=== PATIENT | male | born 1940 | race African-American/Black ===

== ENCOUNTER 2021-08-30 19:26 | Inpatient (IN) | payer MEDICARE, OTHER ==
[~2021-08-30] VITALS: Ht 185.4 cm; Wt 74.8 kg
--- NOTE | 2021-08-30 20:00 | NUR ---
BIBRA 89 FROM HOME FOR C/O BLE WEAKNESS W/ A FALL EPISODE EARLIER TODAY. REDNESS AND SWELLING TO MID-FOREHEAD HIT ON FLOOR PER PT. -KO NO NEURO DEFECITS. PT ALERT AND ORIENTED X4 BREATHING EVEN AND UNLABORED. CHANGED INTO A GOWN AND PLACED ON MONITOR AND ALL V/S STABLE.
--- NOTE | 2021-08-30 20:02 | NUR ---
20G IV LINE ESTABLISHED AT [facility]. PATENT AND INTACT. BLOOD DRAWN AND SENT TO LAB.
--- NOTE | 2021-08-30 20:39 | NUR ---
PT TAKEN TO CT VIA PATY
[2021-08-30 20:45] LABS: BASOPHILS % (AUTO) 0.3 % (0.0-2.0); EOSINOPHILS % (AUTO) 0.4 % (0.0-6.0); HEMATOCRIT 45 % (39-51); HEMOGLOBIN 15.1 g/dL (13.5-17.5); LYMPHOCYTES # (AUTO) 0.8 K/uL (0.8-4.8); LYMPHOCYTES % (AUTO) 9.4 % (20.0-44.0); MEAN CORPUSCULAR HGB CONC 34 g/dl (31.0-36.0); MEAN CORPUSCULAR VOLUME 89 fL (80-96); MONOCYTES # (AUTO) 0.4 K/uL (0.1-1.30); MONOCYTES % (AUTO) 4.9 % (2.0-12.0); NEUTROPHILS # (AUTO) 6.9 K/uL (1.8-8.9); PLATELET COUNT (AUTO) 167 K/uL (150-450); RED BLOOD CELL COUNT(AUTO) 5.05 MIL/uL (4.5-6.0); WHITE BLOOD COUNT (AUTO) 8.1 K/uL (4.3-11.0)
--- NOTE | 2021-08-30 20:53 | NUR ---
PT RETURNED TO ER BED [address] VIA PATY
--- NOTE | 2021-08-30 20:56 | NUR ---
COVID TEST SWABBED AND SENT TO LAB
[2021-08-30 21:08] LABS: CALCIUM, SERUM 9.4 mg/dL (8.5-10.1); CARBON DIOXIDE 32 mmol/L (21-32); CHLORIDE 100 mmol/L (98-107); CREATININE 1.6 mg/dL (0.6-1.3); GLUCOSE 177 mg/dL (74-106); POTASSIUM 3.8 mmol/L (3.5-5.1); SODIUM SERUM 140 mmol/L (136-145); UREA NITROGEN, BLOOD 21 mg/dL (7-18)
[2021-08-30 21:16] LABS: ALANINE AMINOTRANSFERASE 28 U/L (12-78); ALBUMIN 3.7 g/dL (3.4-5.0); ALKALINE PHOSPHATASE 95 U/L (46-116); ASPARTATE AMINOTRANSFERASE 26 U/L (15-37); BILIRUBIN,DIRECT 0.1 mg/dL (0.0-0.2); BILIRUBIN,TOTAL 0.9 mg/dL (0.2-1.0); TOTAL PROTEIN, SERUM 8.2 g/dL (6.4-8.2)
[2021-08-30] MEDS ORDERED: CT SWABBABLE VALVE TRANS SET 1 EA INFUS.SET MC ONE (22:59)
[2021-08-30] MEDS ORDERED: IOHEXOL-350 100 ML VIAL IV ONE (22:59)
[2021-08-30] MEDS ORDERED: IV NS 0.9% 500 ML BAG IV ONE (23:00)
[2021-08-30] MEDS ORDERED: IV NS 0.9% 250 ML IV ONE (23:00)
--- NOTE | 2021-08-30 23:14 | NUR ---
PT TAKEN TO CT VIA PATY
--- NOTE | 2021-08-30 23:29 | NUR ---
PT RETURNED TO ER BED [address] VIA PATY
[2021-08-31] MEDS ORDERED: ASPIRIN 325 MG TABLET ONE (00:16)
[2021-08-31] MEDS ORDERED: ASPIRIN 325 MG TABLET PO ONE (00:30)
--- NOTE | 2021-08-31 00:43 | NUR ---
TELE 779-3
--- NOTE | 2021-08-31 00:56 | NUR ---
LOST CHARGE CARD CLERK AT PT'S BEDSIDE
[2021-08-31] MEDS ORDERED: MAG HYDROX/AL HYDROX/SIMETH 30 ML UDC PO PRN (01:00)
[2021-08-31] MEDS ORDERED: ONDANSETRON HCL/PF 4 MG/2 ML VIAL IVP PRN (01:00)
[2021-08-31] MEDS ORDERED: ACETAMINOPHEN 325 MG TABLET PO PRN (01:00)
[2021-08-31] MEDS ORDERED: Z GUARD REMEDY 4 OZ OINT TP PRN (01:00)
[2021-08-31] MEDS ORDERED: DEXTROSE 50%-WATER 50 ML DISP.SYRIN IV PRN (01:00)
[2021-08-31] MEDS ORDERED: ZOLPIDEM TARTRATE 5 MG TABLET PO PRN (01:00)
[2021-08-31] MEDS ORDERED: MAGNESIUM HYDROXIDE 30 ML UDC PO PRN (01:00)
--- NOTE | 2021-08-31 01:12 | NUR ---
REPORT GIVEN LORDESS
--- NOTE | 2021-08-31 01:57 | NUR ---
TRANSFERRED TO 325 UNDER ACLS
[2021-08-31] MEDS: IV NS 0.9% 1,000 ML IV PRN ×2 (03:31→22:36)
[2021-08-31 04:00] VITALS: BP 151/76
--- NOTE | 2021-08-31 04:13 | NUR ---
PHARMACY STUDENTMILLWRIGHT NOTES: RECEIVED PATIENT FROM ER VIA RNEY AWAKE, ON STABLE CONDITION, NO COMPLAIN OF PAIN AND DISCOMFORT AT THIS TIME, PLACED IN BED COMFORTABLY, SKIN ASSESSMENT DONE, PICTURE TAKEN ON TELE MONITORING SR-75 WITH IV LINE AT LAC#20 WITH ONGOING NSS@75ML PER HOUR INFUSING WELL, INVENTORY DONE AND DOCUMENTED, PATIENT ON ROOM AIR SATURATING WELL, ORIENTED TO ROOM, REMIND PATIENT TO USE CALL LIGHTS WHEN NEEDED ASSISTANCE, PATIENT KEPT CLEAN AND DRY ALL NEEDS MET, WILL CONTINUE TO MONITOR
--- NOTE | 2021-08-31 07:25 | NUR ---
HAND PRINTED CIRCUIT BOARD ASSEMBLER CLOSING NOTES: PATIENT WAS AWAKE IN BED. BED IN LOW POSITON, CALL LIGHTS WITHIN REACH, NO COMPLAIN OF PAIN AND DISCOMFORT AT THIS TIME, ON ROOM AIR SATURATING WELL, PATIENT ON TELE MONITORING WITH NSR, NO SYMPTOMS WAS OBSERVED, PATIENT WAS FALL RISK, CALL LIGHTA AND BED ALARM WAS ON, PATIENT KEPT CLEAN AND DRY ALL NEEDS MET ENDORSE TO INCOMING SHIFT.
--- NOTE | 2021-08-31 07:36 | NUR ---
HYDRAULIC RIVETER OPENING NOTES: RECEIVED PATIENT RESTING IN BED AWAKE, NO COMPLAIN OF PAIN OR DISCOMFORT AT THIS TIME, PATIENT IS BREATHING EVENLY AND NONLABORED ON ROOM AIR. NO SIGNS OF DISTRESS NOTED. PATIENT ON TELE MONITORING SR-75. PATIENT NOTED WITH IV LINE AT LAC#20 WITH ONGOING NSS@75ML PER HOUR INFUSING WELL. SAFETY MEASURES IN PLACE BED LOW LOCKED AND CALL LIGHT WITHIN REACH. WILL CONTINUE TO MONITOR
--- NOTE | 2021-08-31 07:45 | NUR ---
RN NOTES: HOME MEDS ACCOUNTED AND SIGNED BY ME AND PATIENT, WENT DOWN BUT NOBODY WAS IN PHARMACY TO ENDORSE , ENDORSE MEDICATION TO RN, CN WAS MADE AWARE
[2021-08-31] MEDS: BLOOD SUGAR DIAGNOSTIC 1 EACH STRIP VI SCH ×4 (07:51→21:58)
[2021-08-31 08:00] VITALS: BP 138/98
[2021-08-31] MEDS: ASPIRIN 81 MG TAB.CHEW PO SCH (08:05)
[2021-08-31] MEDS ORDERED: LISI1TAB29 PO (09:47)
[2021-08-31] MEDS ORDERED: ALOG12.52 PO (09:47)
[2021-08-31] MEDS ORDERED: CHOL100043 PO (09:47)
[2021-08-31] MEDS ORDERED: BISA5TAB10 PO (09:47)
[2021-08-31] MEDS ORDERED: METF-881 PO (09:47)
[2021-08-31] MEDS ORDERED: OMEP20CA15 PO (09:47)
[2021-08-31] MEDS ORDERED: TAMS-12 PO (09:47)
[2021-08-31] MEDS ORDERED: ATOR40TA PO (09:47)
[2021-08-31] MEDS ORDERED: EMPA25TA PO (09:47)
[2021-08-31] MEDS ORDERED: BISACODYL (5 MG) 5 MG TABLET.DR PO PRN (11:30)
[2021-08-31] MEDS: TAMSULOSIN 0.4 MG CAP.SR.24H PO SCH ×2 (11:39→17:06)
[2021-08-31] MEDS: INSULIN REGULAR, HUMAN 100 UNIT/ML 3 ML VIAL SQ PRN ×2 (11:42→17:06)
[2021-08-31 11:44] LABS: BASOPHILS % (AUTO) 0.4 % (0.0-2.0); EOSINOPHILS % (AUTO) 0.7 % (0.0-6.0); HEMATOCRIT 39 % (39-51); HEMOGLOBIN 13.1 g/dL (13.5-17.5); LYMPHOCYTES # (AUTO) 1.1 K/uL (0.8-4.8); LYMPHOCYTES % (AUTO) 15.4 % (20.0-44.0); MEAN CORPUSCULAR HGB CONC 33 g/dl (31.0-36.0); MEAN CORPUSCULAR VOLUME 90 fL (80-96); MONOCYTES # (AUTO) 0.5 K/uL (0.1-1.30); MONOCYTES % (AUTO) 6.7 % (2.0-12.0); NEUTROPHILS # (AUTO) 5.3 K/uL (1.8-8.9); NEUTROPHILS % (AUTO) 76.8 % (43.0-81.0); PLATELET COUNT (AUTO) 154 K/uL (150-450); WHITE BLOOD COUNT (AUTO) 6.8 K/uL (4.3-11.0)
[2021-08-31 12:00] VITALS: BP 123/75
[2021-08-31 16:00] VITALS: BP 141/78
--- NOTE | 2021-08-31 18:33 | NUR ---
DIRECTOR CRAFT CENTER CLOSING NOTES: PATIENT RESTING IN BED AWAKE, NO COMPLAIN OF PAIN OR DISCOMFORT AT THIS TIME, PATIENT IS BREATHING EVENLY AND NONLABORED ON ROOM AIR. NO SIGNS OF DISTRESS NOTED. PATIENT ON TELE MONITORING PATIENT NOTED WITH IV LINE AT LAC#20 WITH ONGOING NSS@75ML PER HOUR INFUSING WELL. ALL MEDICATIONS GIVEN ORDERED. SAFETY MEASURES IN PLACE BED LOW LOCKED AND CALL LIGHT WITHIN REACH. WILL ENDORSE TO ONCOMING SHIFT
--- NOTE | 2021-08-31 19:20 | NUR ---
LABORATORY SPECIALIST OPENING NOTES: RECEIVED PATIENT IN BED, AWAKE, A/O X4. NO S/S OF DISTRESS NOTED. NO COMPLAIN OF PAIN. CALL LIGHT WITHIN REACH. BED IN LOWEST AND LOCKED POSITION. BED ALARM ON. URINAL AT THE BEDSIDE. BEDSIDE COMMODE AT THE BEDSIDE. INSTRUCTED PATIENT BEDREST AND TO CALL FOR ASSISTANCE PATIENT VERBALIZED UNDERSTANDING.
[2021-08-31 20:00] VITALS: BP 140/80
[2021-08-31 20:17] LABS: CALCIUM, SERUM 8.5 mg/dL (8.5-10.1); CARBON DIOXIDE 25 mmol/L (21-32); CHLORIDE 100 mmol/L (98-107); CREATININE 1.4 mg/dL (0.6-1.3); GLUCOSE 187 mg/dL (74-106); POTASSIUM 3.1 mmol/L (3.5-5.1); SODIUM SERUM 139 mmol/L (136-145); UREA NITROGEN, BLOOD 19 mg/dL (7-18)
[2021-08-31 20:20] LABS: PHOSPHORUS 3.1 mg/dL (2.5-4.9)
[2021-08-31] MEDS: HEPARIN SODIUM, PORCINE 5000 UNITS/1 ML VIAL SQ SCH ×2 (21:00→22:19)
[2021-08-31 21:40] LABS: ALKALINE PHOSPHATASE 86 U/L (46-116); BILIRUBIN,TOTAL 0.9 mg/dL (0.2-1.0)
[2021-08-31 21:41] LABS: ALANINE AMINOTRANSFERASE 28 U/L (12-78); ALBUMIN 3.3 g/dL (3.4-5.0); ASPARTATE AMINOTRANSFERASE 39 U/L (15-37)
[2021-08-31 21:53] LABS: CHOLESTEROL 132 mg/dL (<200); HDL CHOLESTEROL 44 mg/dL (40-60); LDL 76 mg/dL (0-99); TRIGLYCERIDES 54 mg/dL (30-150)
[2021-08-31] MEDS: *INSULIN REGULAR(HUMULIN R)HUM 100 UNIT/ML VIAL SQ PRN (21:58)
[2021-08-31] MEDS: ATORVASTATIN 40 MG TABLET PO SCH (22:19)
[2021-08-31 22:22] LABS: THYROID STIMULATING HORMONE 0.996 uIU/mL (0.358-3.74)
[2021-09-01] VITALS: BP 141/78
[2021-09-01 04:00] VITALS: BP 146/80
[2021-09-01 06:37] LABS: BASOPHILS % (AUTO) 0.4 % (0.0-2.0); EOSINOPHILS % (AUTO) 2.2 % (0.0-6.0); HEMATOCRIT 40 % (39-51); HEMOGLOBIN 13.1 g/dL (13.5-17.5); LYMPHOCYTES # (AUTO) 1.8 K/uL (0.8-4.8); LYMPHOCYTES % (AUTO) 32.6 % (20.0-44.0); MEAN CORPUSCULAR HGB CONC 33 g/dl (31.0-36.0); MEAN CORPUSCULAR VOLUME 90 fL (80-96); MONOCYTES # (AUTO) 0.5 K/uL (0.1-1.30); MONOCYTES % (AUTO) 10.2 % (2.0-12.0); NEUTROPHILS # (AUTO) 2.9 K/uL (1.8-8.9); NEUTROPHILS % (AUTO) 54.6 % (43.0-81.0); PLATELET COUNT (AUTO) 148 K/uL (150-450); WHITE BLOOD COUNT (AUTO) 5.4 K/uL (4.3-11.0)
[2021-09-01] MEDS: INSULIN REGULAR, HUMAN 100 UNIT/ML 3 ML VIAL SQ PRN ×2 (06:49→12:26)
[2021-09-01] MEDS: BLOOD SUGAR DIAGNOSTIC 1 EACH STRIP VI SCH ×4 (06:50→21:16)
[2021-09-01 08:00] VITALS: BP 133/77
[2021-09-01] MEDS: HEPARIN SODIUM, PORCINE 5000 UNITS/1 ML VIAL SQ SCH ×2 (10:44→21:00)
[2021-09-01] MEDS: ALOGLIPTIN 12.5 MG PO SCH (10:45)
[2021-09-01] MEDS: CHOLECALCIFEROL 1,000 UNIT TABLET (VIT D3) PO SCH (10:46)
[2021-09-01] MEDS: ASPIRIN 81 MG TAB.CHEW PO SCH (10:46)
[2021-09-01] MEDS: TAMSULOSIN 0.4 MG CAP.SR.24H PO SCH ×2 (10:46→16:56)
[2021-09-01] MEDS: PANTOPRAZOLE 40 MG TABLET.DR PO SCH (10:46)
[2021-09-01] MEDS: EMPAGLIFLOZIN 25 MG PO SCH (10:46)
[2021-09-01 12:10] LABS: ALANINE AMINOTRANSFERASE 32 U/L (12-78); ALKALINE PHOSPHATASE 76 U/L (46-116); ASPARTATE AMINOTRANSFERASE 32 U/L (15-37); BILIRUBIN,TOTAL 0.7 mg/dL (0.2-1.0); CALCIUM, SERUM 8.6 mg/dL (8.5-10.1); CARBON DIOXIDE 28 mmol/L (21-32); CHLORIDE 104 mmol/L (98-107); CREATININE 1.4 mg/dL (0.6-1.3); GLUCOSE 127 mg/dL (74-106); PHOSPHORUS 4.7 mg/dL (2.5-4.9); POTASSIUM 3.1 mmol/L (3.5-5.1); SODIUM SERUM 144 mmol/L (136-145); TOTAL PROTEIN, SERUM 6.5 g/dL (6.4-8.2); UREA NITROGEN, BLOOD 17 mg/dL (7-18)
[2021-09-01 12:15] LABS: MAGNESIUM 1.1 mg/dL (1.8-2.4)
[2021-09-01] MEDS ORDERED: MAGNESIUM OXIDE 400 MG TABLET PO ONE (13:00)
--- NOTE | 2021-09-01 13:34 | NUR ---
contacted-dr. rutledge regarding low mg level for 2 days.mg oxide ordered and given.
[2021-09-01] MEDS ORDERED: NITROGLYCERIN 0.4 MG/TAB BOTTLE ONE (14:03)
[2021-09-01] MEDS ORDERED: IOHEXOL-350 100 ML VIAL IV ONE (14:03)
[2021-09-01] MEDS ORDERED: CT SWABBABLE VALVE TRANS SET 1 EA INFUS.SET MC ONE (14:04)
[2021-09-01] MEDS ORDERED: IV NS 0.9% 250 ML IV ONE (14:04)
[2021-09-01] MEDS ORDERED: METOPROLOL TARTRATE INJ 5 MG/5 ML AMPUL ONE (14:04)
[2021-09-01] MEDS ORDERED: METOPROLOL TARTRATE INJ 5 MG/5 ML AMPUL IVP PRN (14:30)
[2021-09-01] MEDS ORDERED: NITROGLYCERIN 0.4 MG/TAB BOTTLE SL ONE (14:30)
[2021-09-01 16:00] VITALS: BP 129/75
[2021-09-01] MEDS ORDERED: POTASSIUM CHLORIDE 20 MEQ TAB.PRT.SR PO SCH (17:00)
--- NOTE | 2021-09-01 18:00 | NUR ---
received pt. in am alert and oriented x4.no complaints.med compliant.had ct angio of heart and now to have heart cath tomorrow.consent signed.mg replacement and potassium replacement given.
--- NOTE | 2021-09-01 19:50 | NUR ---
MS RN OPENING NOTES RECEIVED ENDORSEMENT FROM VAISHNAVI READ; PATIENT AWAKE, A/OX4, BELIZEAN SPEAKING; DENIES ANY PAIN, NO DISTRESS NOTED; TOLERATING ROOM AIR WELL; PATIENT IS AWARE OF NPO STATUS BY MIDNIGHT TONIGHT FOR CTA OF HEART TOMORROW MORNING; R AC #20 INTACT AND PATENT, TOLERATING IVF WELL; BED LOCKED IN LOW POSITION; SIDE RAILS UP X2, CALL LIGHT WITHIN REACH, WILL CONT PLAN OF CARE AND CONT TO MONITOR PATIENT
[2021-09-01 20:00] VITALS: BP 122/74
[2021-09-01] MEDS: ATORVASTATIN 40 MG TABLET PO SCH (21:16)
--- NOTE | 2021-09-01 21:24 | NUR ---
MS RN NOTES HEPARIN HELD D/T PROCEDURE IN AM; PATIENT ALSO DID NOT WANT HEPARIN BECAUSE OF PROCEDURE, PATIENT BLOOD SUGAR LEVEL 144 MG/DL, CHARGE NURSE VERBALIZED DO NOT GIVE INSULIN DUE TO PROCEDURE AND NPO STATUS; CHARGE NURSE IS AWARE; WILL CONT TO MONITOR
[2021-09-01] MEDS: IV NS 0.9% 1,000 ML IV PRN (21:54)
--- NOTE | 2021-09-01 21:54 | NUR ---
MS RN NOTES PATIENT 3RD IV BAG OF NS ADMINISTERED, AFTER 3RD BAG PER ORDER, SWITCH TO D5; CHARGE NURSE AWARE, WILL ENDORSE TO AM SHIFT
[2021-09-02 04:25] LABS: BILIRUBIN,URINE NEGATIVE (NEGATIVE); COLOR,URINE YELLOW (YELLOW); LEUKOCYTE ESTERASE ,URINE NEGATIVE (NEGATIVE); NITRITE, URINE NEGATIVE (NEGATIVE); PH,URINE 5.5 (5.0-8.0); PROTEIN,URINE NEGATIVE (NEGATIVE); UGLUCOSE >=1000 mg/dL (NEGATIVE); UROBILINOGEN,URINE 0.2 EU/dL (0.2)
[2021-09-02] MEDS ORDERED: IV D5/0.45 NACL 1,000 ML IV PRN (06:00)
[2021-09-02 06:21] LABS: BASOPHILS % (AUTO) 0.6 % (0.0-2.0); EOSINOPHILS % (AUTO) 2.1 % (0.0-6.0); HEMATOCRIT 38 % (39-51); HEMOGLOBIN 12.9 g/dL (13.5-17.5); LYMPHOCYTES # (AUTO) 1.7 K/uL (0.8-4.8); LYMPHOCYTES % (AUTO) 32.2 % (20.0-44.0); MEAN CORPUSCULAR HGB CONC 34 g/dl (31.0-36.0); MEAN CORPUSCULAR VOLUME 89 fL (80-96); MONOCYTES # (AUTO) 0.5 K/uL (0.1-1.30); MONOCYTES % (AUTO) 10.3 % (2.0-12.0); NEUTROPHILS # (AUTO) 2.8 K/uL (1.8-8.9); NEUTROPHILS % (AUTO) 54.8 % (43.0-81.0); PLATELET COUNT (AUTO) 133 K/uL (150-450); RED BLOOD CELL COUNT(AUTO) 4.29 MIL/uL (4.5-6.0); WHITE BLOOD COUNT (AUTO) 5.2 K/uL (4.3-11.0)
[2021-09-02] MEDS: PANTOPRAZOLE 40 MG TABLET.DR PO SCH (06:36)
[2021-09-02] MEDS: BLOOD SUGAR DIAGNOSTIC 1 EACH STRIP VI SCH ×4 (06:36→21:51)
--- NOTE | 2021-09-02 07:30 | NUR ---
MS RN CLOSING NOTES PATIENT AWAKE, A/OX4, TAJIK SPEAKING; DENIES ANY PAIN, NO DISTRESS NOTED; TOLERATING ROOM AIR WELL; PATIENT IS AWARE OF NPO STATUS FOR CARDIAC CATH; R AC #20 INTACT AND PATENT, TOLERATING IVF WELL; BED LOCKED IN LOW POSITION; SIDE RAILS UP X2, CALL LIGHT WITHIN REACH, WILL ENDORSE CONTINUITY OF CARE TO ONCOMING SHIFT
[2021-09-02 07:40] LABS: CALCIUM, SERUM 8.1 mg/dL (8.5-10.1); CREATININE 1.3 mg/dL (0.6-1.3); POTASSIUM 3.2 mmol/L (3.5-5.1)
--- NOTE | 2021-09-02 08:07 | NUR ---
RN Opening Note Patient received in bed AO x 4, able to responds all stimuli. Respiratory even and unlabored on room air. No distress observed. Patient going cardiac cath at 10:30 in this morning. Skin is warm to touch, keep clean/dry, intact IV site. Kept elevated HOB for ensure airway/aspiration precaution and remain lower position of the bed for safety. call light within reach, will continue to monitor.
[2021-09-02 08:12] VITALS: BP 146/85
[2021-09-02] MEDS: CHOLECALCIFEROL 1,000 UNIT TABLET (VIT D3) PO SCH (08:45)
[2021-09-02] MEDS: ASPIRIN 81 MG TAB.CHEW PO SCH (08:45)
[2021-09-02] MEDS: HEPARIN SODIUM, PORCINE 5000 UNITS/1 ML VIAL SQ SCH ×3 (08:45→21:14)
[2021-09-02] MEDS: ALOGLIPTIN 12.5 MG PO SCH (08:47)
[2021-09-02] MEDS: TAMSULOSIN 0.4 MG CAP.SR.24H PO SCH ×2 (08:48→17:43)
[2021-09-02] MEDS: EMPAGLIFLOZIN 25 MG PO SCH (08:48)
[2021-09-02] MEDS ORDERED: METFORMIN XR 500 MG TAB.SR.24H PO SCH (09:00)
[2021-09-02] MEDS ORDERED: IV NS 0.9% 1,000 ML ONE (09:47)
[2021-09-02] MEDS ORDERED: IODIXANOL 150 ML IV ONE (09:49)
[2021-09-02] MEDS ORDERED: NITROGLYCERIN IN 5 % DEXTROSE 250 ML IV ONE (09:49)
[2021-09-02] MEDS ORDERED: LIDOCAINE HCL/PF 1% 30 ML SDV ONE (09:49)
[2021-09-02] MEDS ORDERED: MIDAZOLAM HCL 2 MG/2ML VIAL ONE (10:17)
[2021-09-02] MEDS ORDERED: FENTANYL PF 100MCG/2ML AMPUL ONE (10:17)
[2021-09-02] MEDS ORDERED: HEPARIN SODIUM, PORCINE 5000 UNITS/1 ML VIAL ONE (11:15)
[2021-09-02] MEDS ORDERED: HEPARIN SODIUM, PORCINE 1,000 UNIT/ML VIAL ONE (11:15)
[2021-09-02] MEDS: POTASSIUM CL. PREMIX PERIPHER. 50 ML IV SCH ×2 (13:30→13:57)
[2021-09-02] MEDS ORDERED: IV NS 0.9% 100 ML IV ONE (13:30)
[2021-09-02] MEDS: IV NS 0.9% 1,000 ML IV PRN ×2 (13:43→14:03)
[2021-09-02] MEDS ORDERED: IV NS 0.9% 1,000 ML IV ONE (16:00)
[2021-09-02 16:06] VITALS: BP 167/76
[2021-09-02] MEDS: *INSULIN REGULAR(HUMULIN R)HUM 100 UNIT/ML VIAL SQ PRN ×2 (17:44→22:04)
--- NOTE | 2021-09-02 18:55 | NUR ---
RN Closing Note Patient is resting in bed, no distress observed. Respiratory even and unlabored on room air. Skin is warm to touch, keep clean/dry. Patient done cardiac cath today and no need intervention, received order discharge to home. However, family member mentioned that patient still weakness, unstable gait, and elevated BP. Dr. Alford said "patient ok to stay tonight." Kept elevated HOB for ensure airway and aspiration precaution, Also lower position of the bed for safety. Call light within reach, all needs met. will endorse shift commander.
--- NOTE | 2021-09-02 19:30 | NUR ---
RN NOTES RECEIVED ON BED A/O X4,SPEAK SURINAM[place],UNDERSTAND AZERI,S./P LEFT HIP TOTAL ARTHROPLASTY,DRESSING INTACT AND DRY,NO BLEEDING NOTES,ENCOURAGED TO USE INCENTIVE SPIROMETRY FOR LUNG EXERCISE WHILE AWAKE.IVF LR AT 100ML/HR RATE INFUSING WELL ON LFA SALINE LOCK VIA IV PUMP,SITE PATENT.PAIN TOLERABLE AT THE MOMENT,CALL LIGHT IN REACH,NEEDS ANTICIPATED. Addendum: 09/02/21 at 2033 by JOHNNIE HELLER RN ENTERED NOTES NOT FOR THIS PATIENT,SHOULD BE [phone]
--- NOTE | 2021-09-02 19:35 | NUR ---
MS RN NOTES RECEIVED ON BED A/O X4,WATCHING TV PROGRAM,BREATHING REGULAR,NOT ANY FORM OF DISTRESS,PRESENT IVF D51/2 NS AT 75ML/HR RATE INFUSING WELL ON RIGHT AC SALINE LOCK VIA IV PUMP,SITE PATENT.DENIES DISCOMFORTS.FALL RISK,BED ALARM,BED ON LOWEST POSITION AND LOCKED,CALL LIGHT IN REACH,NEEDS ANTICIPATED.
[2021-09-02 20:00] VITALS: BP 147/76
--- NOTE | 2021-09-02 21:00 | NUR ---
MS RN NOTES OFFERED TO GIVE HEPARIN 5000 UNITS,PATIENT REFUSED.EXPLAINED RISK AND BENEFITS, STILL REFUSED.
[2021-09-02] MEDS: ATORVASTATIN 40 MG TABLET PO SCH (21:14)
--- NOTE | 2021-09-02 21:30 | NUR ---
MS RN NOTES ACCU-CHECK BLOOD SUGAR CHECK 157,COVERED WITH HUMULIN R 2 UNITS PER SLIDING SCALE.
[2021-09-03] MEDS: BLOOD SUGAR DIAGNOSTIC 1 EACH STRIP VI SCH (05:23)
--- NOTE | 2021-09-03 05:30 | NUR ---
MS RN NOTES ACCU-CHECK BLOOD SUGAR CHECK 136,COVERED WITH HUMULIN R 2 UNITS PER SLIDING SCALE.
[2021-09-03] MEDS: INSULIN REGULAR, HUMAN 100 UNIT/ML 3 ML VIAL SQ PRN (05:41)
--- NOTE | 2021-09-03 06:33 | NUR ---
MS RN NOTES SLEPT WELL AT NIGHT.CLAIMED HE FEELS BETTER AND RESTED.FOR DISCHARGE TODAY TODAY TO HOME.NO DISTRESS.ALL NEEDS ATTENDED.
[2021-09-03 08:00] VITALS: BP 156/76
--- NOTE | 2021-09-03 08:00 | NUR ---
RN Opening Note Patient received in bed AO x 4, able to responds all stimuli. Respiratory even and unlabored on room air. No distress observed. Skin is warm to touch, keep clean/dry, intact IV site. Kept elevated HOB for ensure airway/aspiration precaution and remain lower position of the bed for safety. call light within reach, will continue to monitor.
[2021-09-03] MEDS: CHOLECALCIFEROL 1,000 UNIT TABLET (VIT D3) PO SCH (08:05)
[2021-09-03] MEDS: EMPAGLIFLOZIN 25 MG PO SCH (08:05)
[2021-09-03] MEDS: ALOGLIPTIN 12.5 MG PO SCH (08:05)
[2021-09-03] MEDS: ASPIRIN 81 MG TAB.CHEW PO SCH (08:06)
[2021-09-03] MEDS: PANTOPRAZOLE 40 MG TABLET.DR PO SCH (08:06)
[2021-09-03] MEDS: TAMSULOSIN 0.4 MG CAP.SR.24H PO SCH (08:06)
[2021-09-03] MEDS: HEPARIN SODIUM, PORCINE 5000 UNITS/1 ML VIAL SQ SCH (08:15)
[2021-09-03] MEDS ORDERED: LOSARTAN POTASSIUM 50 MG TABLET PO SCH (09:00)
[2021-09-03] MEDS ORDERED: CARVEDILOL 12.5 MG TABLET PO SCH (09:00)
[2021-09-03 09:08] VITALS: BP 156/76
--- NOTE | 2021-09-03 09:12 | NUR ---
HR 50, will hold Coreg.
[2021-09-03 11:07] LABS: *SPE A/G RATIO 0.9 (0.7-1.7); *SPE ALPHA-1-GLOBULIN 0.2 g/dL (0.0-0.4); *SPE ALPHA-2-GLOBULIN 0.8 g/dL (0.4-1.0); *SPE M-SPIKE Not Observed g/dL (Not Observed)
--- NOTE | 2021-09-03 12:00 | NUR ---
Patient discharge to home, given d/c instruction include follow up Dr. Andrew in 1 week from discharge. Patient in stable condition, denies distress, and left facility accompanied by staff with wheel chair to the private car. Retuned all home meds to patient.
== END 2021-09-03 12:30 | disposition home or self-care (01) | DRG 280 ==
LOC: ER 19:28 → TELE 08-31 00:44 → MED 09-01 09:55
PROVIDERS: ADMIT Hospitalist; ATTEND Internal Medicine
PROC: 4A023N7 Measurement of Cardiac Sampling and Pressure, Left Heart, Percutaneous Approach (ICD-10-PCS; principal; 2021-09-02)
PROC: B211YZZ Fluoroscopy of Multiple Coronary Arteries using Other Contrast (ICD-10-PCS; 2021-09-02)
PROC: 4A0335C Measurement of Arterial Flow, Coronary, Percutaneous Approach (ICD-10-PCS; 2021-09-02)
DX: I21.4 Non-ST elevation (NSTEMI) myocardial infarction (principal); N17.0 Acute kidney failure with tubular necrosis; E86.0 Dehydration; I10 Essential (primary) hypertension; E11.9 Type 2 diabetes mellitus without complications; N40.0 Benign prostatic hyperplasia without lower urinary tract symptoms; I25.10 Atherosclerotic heart disease of native coronary artery without angina pectoris; Z20.822 Contact with and (suspected) exposure to COVID-19; E78.5 Hyperlipidemia, unspecified; Z79.84 Long term (current) use of oral hypoglycemic drugs; M50.30 Other cervical disc degeneration, unspecified cervical region; I95.9 Hypotension, unspecified
CPT/HCPCS: 36415; 70450-TC; 70496-TC; 70498-TC; 71045-TC; 75574; 80048-TC; 80053-TC; 80061-TC; 80076-TC; 82962-TC; 83735-TC; 84100-TC; 84155; 84165; 84439-TC; 84443-TC; 84484-TC; 85025-TC; 85730-TC; 86850-TC; 87081-TC; 93307-TC; 97116-TC; 97530-TC; A6253; C1769; C1887; C9803; G0378; G0500; J1644; J1815; J2250; J3010; J3490; J7030; J7042; J7050; Q9967